=== PATIENT | male | born 1965 | race Caucasian/White ===

== ENCOUNTER → 2018-11-26 | Day surgery (SDC) | payer BC ==
[2018-11-22 09:44] LABS: Basophils # (auto) 0.1 uL; Basophils % (auto) 1.1 % (0.0-2.0); Eosinophils # (auto) 0.1 uL; Eosinophils % (auto) 0.9 % (0.0-7.0); Hematocrit 46.4 % (41.0-53.0); Hemoglobin 16.2 g/dL (13.5-17.5); Lymphocytes # (auto) 2.1 uL; Lymphocytes % (auto) 31.7 % (10.0-50.0); Mean Corpuscular Hemoglobin 30.1 pg (28.0-32.0); Mean Corpuscular Volume 86.1 fL (80.0-100.0); Monocytes # (auto) 0.5 uL; Monocytes % (auto) 7.6 % (0.0-12.0); Neutrophils # (auto) 3.8 uL; Neutrophils % (auto) 58.7 % (37.0-80.0); Nucleated Red Blood Cells % 0.2 %; Platelet Count (auto) 211 10^3/uL (140-450); Red Blood Cells 5.39 10^6/uL (4.5-5.90); Red Cell Distribution Width 13.3 % (11.8-14.3); White Blood Cell 6.5 10^3/uL (4.4-10.8)
[2018-11-22 09:53] LABS: Urine Bacteria NONE SEEN /hpf (None Seen); Urine Blood Negative /uL (Negative); Urine Specific Gravity 1.042 (1.001-1.035); Urine WBC <1 /hpf (0 - 3)
[2018-11-22 10:05] LABS: BUN/Creatinine Ratio 15.4; Bilirubin, Total 0.6 mg/dL (0.2-1.0); Total Protein 7.8 g/dL (6.4-8.2)
[2018-11-22 10:37] LABS: INR 0.97 (0.9-1.15); Partial Thromboplastin Time 27.7 sec (23.64-32.05)
[~2018-11-26] VITALS: Ht 185.4 cm; Wt 120.2 kg
[~2018-11-26] MED LIST: ATOR40TA52 PO; GLIM4TAB42 PO; InsuLIN REG 1unit/0.01ml Soln (100units/ml) ONE; LIDOCAINE 1% HCL (LOCAL ANESTH.) INJ 20ML MDV ONE; LIDOCAINE 2% (LOCAL ANESTH.) PF 5ml SDV ONE; LISI40TA PO; METF-371 PO; METO-159 PO; MIDAZOLAM HCL 1MG/1ML-2 ML VIAL ONE; PIO30T PO; ceFAZolin 1GM/50ML 50 ML IV ONE
== END | disposition home or self-care (01) ==
LOC: SUR 07:22
PROVIDERS: ATTEND Orthopaedic Surgery
DX: Z53.8 Procedure and treatment not carried out for other reasons (principal); M23.322 Other meniscus derangements, posterior horn of medial meniscus, left knee
CPT/HCPCS: 36415; 80053; 81001; 82962; 83036; 85025; 85610; 85730; J0690; J1815; J2001; J2250